=== PATIENT | female | born 1955 | race African-American/Black ===

== ENCOUNTER 2018-03-21 11:48 | Inpatient (IN) | payer MEDICAID, OTHER ==
[~2018-03-21] VITALS: Ht 162.6 cm; Wt 58.1 kg
[~2018-03-21 11:48] MED LIST: UNK HTN
[2018-03-21] MEDS ORDERED: METHYLPREDNISOLONE SOD SUCC 125 MG/2 ML VIAL IV STA (12:07)
[2018-03-21] MEDS ORDERED: IPRATROPIUM BROMIDE (0.02%) 0.5MG/2.5ML NEB HHN STA (12:07)
[2018-03-21] MEDS ORDERED: ALBUTEROL (0.083%) 2.5MG/3ML NEB HHN STA (12:07)
[2018-03-21 13:32] LABS: BASOPHILS % 0.9 % (0.0-2.0); EOSINOPHILS % 4.9 % (0.0-5.0); HEMATOCRIT. 37.9 % (36.0-48.0); HEMOGLOBIN. 12.5 g/dL (12.0-16.0); LYMPHOCYTES % 35.1 % (20.0-50.0); MEAN CORPUSCULAR HEMOGLOBIN 32.2 pg (28.0-32.0); MEAN CORPUSCULAR VOLUME 97.4 fL (81.0-99.0); MEAN PLATELET VOLUME 8.1 fl (7.4-10.4); NEUTROPHILS % 47.1 % (40.0-76.0); PLATELET 225 x1000/uL (130-400); RED BLOOD CELL COUNT 3.89 mill/uL (4.2-5.4); RED CELL DISTRIBUTION WIDTH 13.1 % (11.6-14.6)
[2018-03-21 13:38] LABS: CHLORIDE 106 mEq/L (98-107)
[2018-03-21] MEDS ORDERED: ASPIRIN 325MG TABLET PO NR (14:00)
[2018-03-21] MEDS ORDERED: ACETAMINOPHEN 650MG SUPP PR PRN (14:30)
[2018-03-21] MEDS ORDERED: ACETAMINOPHEN 325MG TABLET PO PRN (14:30)
[2018-03-21] MEDS ORDERED: HYDROCODONE/ACETAMINOPHEN 5/325MG TABLET PO PRN (14:30)
[2018-03-21] MEDS ORDERED: ACETAMINOPHEN 650MG/20.3ML UDC GT PRN (14:30)
[2018-03-21] MEDS ORDERED: ONDANSETRON HCL 4MG/2ML INJ IV PRN (14:30)
[2018-03-21] MEDS ORDERED: MAGNESIUM/ALUMINUM HYDROXIDE/SIMETHICONE 30ML UDC PO PRN (14:30)
[2018-03-21] MEDS ORDERED: FUROSEMIDE 40MG/4ML VIAL IVP NR (14:30)
[2018-03-21] MEDS ORDERED: NITROGLYCERIN 0.4MG TABLET SL SL PRN (16:00)
[2018-03-21 16:36] LABS: CLARITY URINE TURBID (CLEAR); COLOR URINE YELLOW (YELLOW); KETONES URINE NEGATIVE (NEGATIVE); LEUKOCYTE ESTERASE URINE 3+ (NEGATIVE); NITRITE URINE NEGATIVE (NEGATIVE); OCCULT BLOOD URINE 1+ (NEGATIVE); PH URINE 6.5 (4.5-8.0); PROTEIN URINE 1+ (NEGATIVE); SPECIFIC GRAVITY URINE 1.021 (1.005-1.030)
[2018-03-21 16:50] LABS: *AMPHETAMINES SCREEN URINE NEGATIVE (NEGATIVE); *BARBITURATES SCREEN URINE NEGATIVE (NEGATIVE); *BENZODIAZEPINES SCREEN URINE NEGATIVE (NEGATIVE); *COCAINE SCREEN URINE PRESUMTIVE POSITIVE (NEGATIVE); METHADONE URINE SCREEN NEGATIVE (NEGATIVE)
[2018-03-21 16:51] LABS: CANNABINOID URINE SCREEN NEGATIVE (NEGATIVE); OPIATES URINE SCREEN NEGATIVE (NEGATIVE); PHENCYCLIDINE URINE SCREEN NEGATIVE (NEGATIVE)
[2018-03-21] MEDS ORDERED: ONDANSETRON 4MG ODT PO PRN (17:30)
[2018-03-21] MEDS ORDERED: ALBU18HF2 IH (17:57)
[2018-03-21] MEDS ORDERED: BECL10.6 IH (17:57)
[2018-03-21] MEDS ORDERED: IPRATROPIUM/ALBUTEROL 0.5-3(2.5)MG/3ML NEB HHN PRN (18:00)
[2018-03-21 18:02] VITALS: BP 142/74
[2018-03-21] MEDS: METHYLPREDNISOLONE SOD SUCC 40 MG/ML VIAL IV SCH (18:19)
[2018-03-21] MEDS: ENOXAPARIN 60MG/0.6ML SYR SUBCUT SCH (18:20)
[2018-03-21] MEDS: LISINOPRIL 2.5MG TABLET PO SCH (18:20)
[2018-03-21 18:34] VITALS: BP 136/64
[2018-03-21] MEDS ORDERED: IPRATROPIUM/ALBUTEROL 0.5-3(2.5)MG/3ML NEB INH SCH (20:00)
[2018-03-21] MEDS: AMLODIPINE 5MG TABLET PO SCH (20:27)
[2018-03-21] MEDS: ATORVASTATIN CALCIUM 40MG TABLET PO SCH (20:27)
[2018-03-21] MEDS: IPRATROPIUM/ALBUTEROL 0.5-3(2.5)MG/3ML NEB HHN SCH (20:29)
[2018-03-21] MEDS: BUDESONIDE 0.5MG/2ML NEB HHN SCH (20:29)
[2018-03-21 22:00] VITALS: BP 123/71
[2018-03-22] VITALS (7 sets, daily range): BP systolic 91–131; BP diastolic 48–72
[2018-03-22 01:29] LABS: CREATINE KINASE MB FRACTION 2.3 ng/mL (0.5-3.6)
[2018-03-22] MEDS: IPRATROPIUM/ALBUTEROL 0.5-3(2.5)MG/3ML NEB HHN SCH ×3 (02:03→21:45)
[2018-03-22] MEDS: HYDROCODONE/ACETAMINOPHEN 10/325MG TABLET PO PRN ×2 (04:32→13:12)
[2018-03-22] MEDS: ENOXAPARIN 60MG/0.6ML SYR SUBCUT SCH (06:00)
[2018-03-22] MEDS: AMLODIPINE 5MG TABLET PO SCH ×2 (09:00→21:13)
[2018-03-22] MEDS: LISINOPRIL 2.5MG TABLET PO SCH (09:00)
[2018-03-22] MEDS: METHYLPREDNISOLONE SOD SUCC 40 MG/ML VIAL IV SCH (09:44)
[2018-03-22] MEDS: BUDESONIDE 0.5MG/2ML NEB HHN SCH ×2 (12:27→21:45)
[2018-03-22 16:16] LABS: BASOPHILS % 0.1 % (0.0-2.0); HEMATOCRIT. 36.9 % (36.0-48.0); HEMOGLOBIN. 12.4 g/dL (12.0-16.0); LYMPHOCYTES % 10.1 % (20.0-50.0); MEAN CORPUSCULAR HEMOGLOBIN 32.1 pg (28.0-32.0); MEAN CORPUSCULAR VOLUME 95.5 fL (81.0-99.0); MEAN PLATELET VOLUME 8.7 fl (7.4-10.4); MONOCYTES % 2.8 % (2.0-8.0); PLATELET 257 x1000/uL (130-400); RED BLOOD CELL COUNT 3.86 mill/uL (4.2-5.4); RED CELL DISTRIBUTION WIDTH 12.9 % (11.6-14.6)
[2018-03-22 16:30] LABS: T4 FREE 1.06 ng/dL (0.76-1.46)
[2018-03-22 16:30] LABS: AMMONIA 28 uMol/L (<32)
[2018-03-22 16:33] LABS: CREATINE KINASE MB FRACTION 1.3 ng/mL (0.5-3.6)
[2018-03-22 16:40] LABS: PROTHROMBIN TIME 10.3 sec (9.1-11.1)
[2018-03-22] MEDS: ENOXAPARIN 40MG/0.4ML SYR SUBCUT SCH (18:35)
[2018-03-22] MEDS: ATORVASTATIN CALCIUM 40MG TABLET PO SCH (21:13)
[2018-03-23] MEDS: IPRATROPIUM/ALBUTEROL 0.5-3(2.5)MG/3ML NEB HHN SCH ×3 (02:55→21:01)
[2018-03-23 06:28] LABS: BASOPHILS % 0.4 % (0.0-2.0); EOSINOPHILS % 0.2 % (0.0-5.0); HEMATOCRIT. 35.7 % (36.0-48.0); HEMOGLOBIN. 12.2 g/dL (12.0-16.0); LYMPHOCYTES % 38.2 % (20.0-50.0); MEAN CORPUSCULAR HEMOGLOBIN 32.8 pg (28.0-32.0); MEAN CORPUSCULAR VOLUME 96.1 fL (81.0-99.0); MEAN PLATELET VOLUME 8.6 fl (7.4-10.4); MONOCYTES % 7.3 % (2.0-8.0); NEUTROPHILS % 53.9 % (40.0-76.0); PLATELET 268 x1000/uL (130-400); RED BLOOD CELL COUNT 3.71 mill/uL (4.2-5.4); RED CELL DISTRIBUTION WIDTH 12.9 % (11.6-14.6)
[2018-03-23 08:01] VITALS: BP 125/76
[2018-03-23] MEDS: BUDESONIDE 0.5MG/2ML NEB HHN SCH ×2 (08:30→21:01)
[2018-03-23] MEDS: AMLODIPINE 5MG TABLET PO SCH ×2 (08:42→19:54)
[2018-03-23] MEDS: LISINOPRIL 2.5MG TABLET PO SCH (08:42)
[2018-03-23 11:57] VITALS: BP 94/49
[2018-03-23 16:00] VITALS: BP 110/52
[2018-03-23] MEDS: ENOXAPARIN 40MG/0.4ML SYR SUBCUT SCH (18:17)
[2018-03-23] MEDS: ATORVASTATIN CALCIUM 40MG TABLET PO SCH (20:02)
[2018-03-23] MEDS: HYDROCODONE/ACETAMINOPHEN 10/325MG TABLET PO PRN (20:02)
[2018-03-24] VITALS: BP 94/54
[2018-03-24] MEDS: IPRATROPIUM/ALBUTEROL 0.5-3(2.5)MG/3ML NEB HHN SCH ×4 (02:00→14:32)
[2018-03-24 08:00] VITALS: BP 107/60
[2018-03-24] MEDS: BUDESONIDE 0.5MG/2ML NEB HHN SCH (08:20)
[2018-03-24] MEDS: LISINOPRIL 2.5MG TABLET PO SCH (09:00)
[2018-03-24] MEDS: AMLODIPINE 5MG TABLET PO SCH (09:00)
[2018-03-24 10:00] VITALS: BP 94/56
[2018-03-24 11:43] LABS: BASOPHILS % 0.7 % (0.0-2.0); EOSINOPHILS % 3.1 % (0.0-5.0); HEMATOCRIT. 35.7 % (36.0-48.0); HEMOGLOBIN. 11.9 g/dL (12.0-16.0); LYMPHOCYTES % 43.3 % (20.0-50.0); MEAN CORPUSCULAR HEMOGLOBIN 32.3 pg (28.0-32.0); MEAN CORPUSCULAR VOLUME 96.9 fL (81.0-99.0); MEAN PLATELET VOLUME 8.9 fl (7.4-10.4); MONOCYTES % 9.4 % (2.0-8.0); NEUTROPHILS % 43.5 % (40.0-76.0); PLATELET 270 x1000/uL (130-400); RED BLOOD CELL COUNT 3.68 mill/uL (4.2-5.4); RED CELL DISTRIBUTION WIDTH 13.3 % (11.6-14.6)
[2018-03-24 12:00] VITALS: BP 98/56
[2018-03-24 12:28] LABS: CHLORIDE 105 mEq/L (98-107)
[2018-03-24 12:36] LABS: PHOSPHORUS 2.9 mg/dL (2.5-4.9)
[2018-03-24 14:43] VITALS: BP 115/64
[2018-03-24 16:00] VITALS: BP 115/66
[2018-03-24] MEDS: ENOXAPARIN 40MG/0.4ML SYR SUBCUT SCH (18:00)
== END 2018-03-24 19:04 | disposition home or self-care (01) | DRG 816 ==
LOC: ER 11:48 → 5EST 13:53 → EDBEDREQSVC 13:56 → EDBEDREQ 13:56 → ENRESERV 14:02
PROVIDERS: ADMIT Internal Medicine; ATTEND Internal Medicine
DX: T40.5X1A Poisoning by cocaine, accidental (unintentional), initial encounter (principal); I21.4 Non-ST elevation (NSTEMI) myocardial infarction; J96.00 Acute respiratory failure, unspecified whether with hypoxia or hypercapnia; J44.1 Chronic obstructive pulmonary disease with (acute) exacerbation; I11.0 Hypertensive heart disease with heart failure; E11.40 Type 2 diabetes mellitus with diabetic neuropathy, unspecified; I42.9 Cardiomyopathy, unspecified; J45.901 Unspecified asthma with (acute) exacerbation; I50.9 Heart failure, unspecified; N39.0 Urinary tract infection, site not specified; I44.7 Left bundle-branch block, unspecified; F17.210 Nicotine dependence, cigarettes, uncomplicated; I25.10 Atherosclerotic heart disease of native coronary artery without angina pectoris; Z79.84 Long term (current) use of oral hypoglycemic drugs; Z82.49 Family history of ischemic heart disease and other diseases of the circulatory system; Z82.5 Family history of asthma and other chronic lower respiratory diseases; Z91.14 Patient's other noncompliance with medication regimen; Z91.19 Patient's noncompliance with other medical treatment and regimen; Y92.89 Other specified places as the place of occurrence of the external cause; Z88.0 Allergy status to penicillin; Z88.6 Allergy status to analgesic agent; Z71.6 Tobacco abuse counseling
CPT/HCPCS: 36415; 71045; 80048; 80053; 80061; 80076; 80305; 81003; 82140; 82550; 82553; 83036; 83690; 83735; 83880; 84100; 84439; 84443; 84481; 84484; 85025; 85610; 87086; 93005; 93306; 93970; 96374; 96375; 97162; 99291; J1650; J1940; J2920; J2930; J7050; J7620; J7626

== ENCOUNTER 2018-04-23 17:19 | Emergency (ER) | payer MEDICAID | END 2018-04-23 17:49 | disposition left against medical advice (07) | LOC: ER 17:37 | DX: Z53.21 Procedure and treatment not carried out due to patient leaving prior to being seen by health care provider (principal) | CPT/HCPCS: Z7610 ×2 ==

== ENCOUNTER 2018-04-23 17:58 | Inpatient (IN) | payer MEDICAID ==
[~2018-04-23] VITALS: Ht 162.6 cm; Wt 59.0 kg
[2018-04-23] MEDS ORDERED: IPRATROPIUM BROMIDE (0.02%) 0.5MG/2.5ML NEB HHN STA (19:18)
[2018-04-23] MEDS ORDERED: METHYLPREDNISOLONE SOD SUCC 125 MG/2 ML VIAL IV STA (19:18)
[2018-04-23] MEDS ORDERED: MAGNESIUM 2 G PREMIX 50 ML IV ONE (19:30)
[2018-04-23] MEDS: ALBUTEROL (0.083%) 2.5MG/3ML NEB HHN SCH ×3 (19:48→21:07)
[2018-04-23] MEDS ORDERED: MORPHINE SULFATE 4 MG/ML CPJ (NOT FOR IM USE) IV ONE ×2 (20:15→21:00)
[2018-04-23 20:32] LABS: BASOPHILS % 0.6 % (0.0-2.0); EOSINOPHILS % 2.9 % (0.0-5.0); HEMATOCRIT. 34.5 % (36.0-48.0); HEMOGLOBIN. 11.5 g/dL (12.0-16.0); LYMPHOCYTES % 44.2 % (20.0-50.0); MEAN CORPUSCULAR VOLUME 95.7 fL (81.0-99.0); MEAN PLATELET VOLUME 8.4 fl (7.4-10.4); MONOCYTES % 10.4 % (2.0-8.0); NEUTROPHILS % 41.9 % (40.0-76.0); PLATELET 269 x1000/uL (130-400); RED BLOOD CELL COUNT 3.61 mill/uL (4.2-5.4); RED CELL DISTRIBUTION WIDTH 13.1 % (11.6-14.6)
[2018-04-23 20:38] LABS: CHLORIDE 105 mEq/L (98-107)
[2018-04-23] MEDS ORDERED: ENOXAPARIN 60MG/0.6ML SYR SUBCUT ONE (21:00)
[2018-04-23] MEDS ORDERED: MAGNESIUM/ALUMINUM HYDROXIDE/SIMETHICONE 30ML UDC PO PRN (21:45)
[2018-04-23] MEDS ORDERED: CLONIDINE 0.1MG TABLET PO PRN (21:45)
[2018-04-23] MEDS ORDERED: DOCUSATE SODIUM 100MG CAPSULE PO PRN (21:45)
[2018-04-23] MEDS ORDERED: ONDANSETRON HCL 4MG/2ML INJ IV PRN (21:45)
[2018-04-23] MEDS ORDERED: IPRATROPIUM/ALBUTEROL 0.5-3(2.5)MG/3ML NEB INH PRN (21:45)
[2018-04-24] VITALS (13 sets, daily range): BP systolic 98–127; BP diastolic 47–75
[2018-04-24] MEDS ORDERED: POTASSIUM CHLORIDE 20MEQ TABLET SR PO NR (01:15)
[2018-04-24 03:56] LABS: *AMPHETAMINES SCREEN URINE NEGATIVE (NEGATIVE); *BARBITURATES SCREEN URINE NEGATIVE (NEGATIVE); CANNABINOID URINE SCREEN NEGATIVE (NEGATIVE)
[2018-04-24 03:57] LABS: *BENZODIAZEPINES SCREEN URINE NEGATIVE (NEGATIVE); *COCAINE SCREEN URINE PRESUMTIVE POSITIVE (NEGATIVE); METHADONE URINE SCREEN NEGATIVE (NEGATIVE); OPIATES URINE SCREEN PRESUMTIVE POSITIVE (NEGATIVE); PHENCYCLIDINE URINE SCREEN NEGATIVE (NEGATIVE)
[2018-04-24 06:19] LABS: BASOPHILS % 0.1 % (0.0-2.0); HEMATOCRIT. 32.9 % (36.0-48.0); HEMOGLOBIN. 11.2 g/dL (12.0-16.0); LYMPHOCYTES % 18.5 % (20.0-50.0); MEAN CORPUSCULAR HEMOGLOBIN 32.6 pg (28.0-32.0); MEAN CORPUSCULAR VOLUME 95.9 fL (81.0-99.0); MEAN PLATELET VOLUME 8.2 fl (7.4-10.4); MONOCYTES % 1.7 % (2.0-8.0); NEUTROPHILS % 79.7 % (40.0-76.0); PLATELET 270 x1000/uL (130-400); RED BLOOD CELL COUNT 3.43 mill/uL (4.2-5.4); RED CELL DISTRIBUTION WIDTH 13.4 % (11.6-14.6)
[2018-04-24 06:29] LABS: PROTHROMBIN TIME 10.3 sec (9.1-11.1)
[2018-04-24 08:05] LABS: CREATINE KINASE 118 IU/L (26-192); CREATINE KINASE MB FRACTION < 1.0 ng/mL (0.5-3.6); HDL CHOLESTEROL 57 mg/dL (40-59); LDL CHOLESTEROL 80 mg/dL (5-100)
[2018-04-24] MEDS: AMLODIPINE 2.5MG TABLET PO SCH (08:52)
[2018-04-24] MEDS: ASPIRIN 81MG EC TABLET PO SCH (08:52)
[2018-04-24] MEDS: HYDROCODONE/ACETAMINOPHEN 5/325MG TABLET PO PRN ×2 (08:58→23:22)
[2018-04-24] MEDS ORDERED: ENOXAPARIN 80MG/0.8ML SYR SUBCUT SCH (09:00)
[2018-04-24] MEDS ORDERED: DEXTROSE 50% WATER 50ML SYRINGE IV PRN (10:15)
[2018-04-24] MEDS: FUROSEMIDE 100MG/10ML VIAL IVP SCH ×2 (10:56→16:54)
[2018-04-24] MEDS: POTASSIUM CHLORIDE 20MEQ TABLET SR PO SCH ×2 (10:57→16:54)
[2018-04-24] MEDS: BLOOD SUGAR DIAGNOSTIC STRIP TEST SCH ×3 (11:33→21:00)
[2018-04-24] MEDS: INSULIN LISPRO 100 UNITS/ML SUBCUT SCH ×3 (12:28→21:00)
[2018-04-24] MEDS: NICOTINE 21MG PATCH TD SCH (16:54)
[2018-04-24] MEDS: BUDESONIDE 0.5MG/2ML NEB HHN SCH (20:50)
[2018-04-24] MEDS: IPRATROPIUM/ALBUTEROL 0.5-3(2.5)MG/3ML NEB HHN SCH (20:50)
[2018-04-24] MEDS: ENOXAPARIN 60MG/0.6ML SYR SUBCUT SCH (21:25)
[2018-04-25] VITALS (11 sets, daily range): BP systolic 92–125; BP diastolic 50–86
[2018-04-25] MEDS: IPRATROPIUM/ALBUTEROL 0.5-3(2.5)MG/3ML NEB HHN SCH ×7 (00:20→23:50)
[2018-04-25 07:07] LABS: EOSINOPHILS % 1.3 % (0.0-5.0); HEMOGLOBIN. 12.7 g/dL (12.0-16.0); LYMPHOCYTES % 39.8 % (20.0-50.0); MEAN CORPUSCULAR VOLUME 95.4 fL (81.0-99.0); MEAN PLATELET VOLUME 8.7 fl (7.4-10.4); MONOCYTES % 6.9 % (2.0-8.0); PLATELET 304 x1000/uL (130-400); RED BLOOD CELL COUNT 3.98 mill/uL (4.2-5.4); RED CELL DISTRIBUTION WIDTH 13.1 % (11.6-14.6)
[2018-04-25] MEDS: BLOOD SUGAR DIAGNOSTIC STRIP TEST SCH ×4 (07:51→21:00)
[2018-04-25] MEDS: INSULIN LISPRO 100 UNITS/ML SUBCUT SCH ×4 (08:00→21:00)
[2018-04-25] MEDS: AMLODIPINE 2.5MG TABLET PO SCH (09:16)
[2018-04-25] MEDS: ASPIRIN 81MG EC TABLET PO SCH (09:16)
[2018-04-25] MEDS: POTASSIUM CHLORIDE 20MEQ TABLET SR PO SCH ×2 (09:17→17:15)
[2018-04-25] MEDS: ENOXAPARIN 60MG/0.6ML SYR SUBCUT SCH ×3 (09:21→21:12)
[2018-04-25] MEDS: NICOTINE 21MG PATCH TD SCH (09:22)
[2018-04-25] MEDS: FUROSEMIDE 100MG/10ML VIAL IVP SCH (09:23)
[2018-04-25] MEDS: BUDESONIDE 0.5MG/2ML NEB HHN SCH ×2 (09:44→20:00)
[2018-04-25] MEDS: HYDROCODONE/ACETAMINOPHEN 5/325MG TABLET PO PRN (15:10)
[2018-04-25] MEDS ORDERED: POTA20TA82 PO (15:41)
[2018-04-25] MEDS ORDERED: AMLO2.5T45 PO (15:41)
[2018-04-25] MEDS ORDERED: ASPI-1158 PO (15:41)
[2018-04-25] MEDS ORDERED: FURO80TA87 MT (15:41)
[2018-04-25] MEDS: FUROSEMIDE 80MG TABLET PO SCH (17:15)
[2018-04-26] VITALS (11 sets, daily range): BP systolic 98–144; BP diastolic 58–77
[2018-04-26] MEDS: IPRATROPIUM/ALBUTEROL 0.5-3(2.5)MG/3ML NEB HHN SCH ×3 (04:00→12:49)
[2018-04-26 07:01] LABS: BASOPHILS % 0.7 % (0.0-2.0); EOSINOPHILS % 3.6 % (0.0-5.0); HEMATOCRIT. 39.8 % (36.0-48.0); HEMOGLOBIN. 13.6 g/dL (12.0-16.0); LYMPHOCYTES % 40.6 % (20.0-50.0); MEAN CORPUSCULAR HEMOGLOBIN 32.3 pg (28.0-32.0); MEAN CORPUSCULAR VOLUME 94.8 fL (81.0-99.0); MEAN PLATELET VOLUME 8.5 fl (7.4-10.4); MONOCYTES % 8.1 % (2.0-8.0); PLATELET 346 x1000/uL (130-400); RED CELL DISTRIBUTION WIDTH 13.6 % (11.6-14.6)
[2018-04-26] MEDS: BLOOD SUGAR DIAGNOSTIC STRIP TEST SCH ×4 (07:56→20:22)
[2018-04-26] MEDS: INSULIN LISPRO 100 UNITS/ML SUBCUT SCH ×4 (07:56→20:28)
[2018-04-26] MEDS: ASPIRIN 81MG EC TABLET PO SCH (08:41)
[2018-04-26] MEDS: POTASSIUM CHLORIDE 20MEQ TABLET SR PO SCH ×2 (08:43→17:23)
[2018-04-26] MEDS: FUROSEMIDE 80MG TABLET PO SCH ×2 (08:43→17:23)
[2018-04-26] MEDS: NICOTINE 21MG PATCH TD SCH (08:44)
[2018-04-26] MEDS: AMLODIPINE 2.5MG TABLET PO SCH (08:44)
[2018-04-26] MEDS: ENOXAPARIN 60MG/0.6ML SYR SUBCUT SCH ×2 (08:44→20:29)
[2018-04-26] MEDS: ACETAMINOPHEN 325MG TABLET PO PRN ×2 (08:45→14:50)
[2018-04-26] MEDS: BUDESONIDE 0.5MG/2ML NEB HHN SCH ×2 (09:20→19:58)
[2018-04-26] MEDS: IPRATROPIUM BROMIDE (0.02%) 0.5MG/2.5ML NEB HHN SCH (19:58)
[2018-04-27] VITALS (12 sets, daily range): BP systolic 97–126; BP diastolic 54–83
[2018-04-27] MEDS: IPRATROPIUM BROMIDE (0.02%) 0.5MG/2.5ML NEB HHN SCH ×4 (01:35→21:27)
[2018-04-27] MEDS: BLOOD SUGAR DIAGNOSTIC STRIP TEST SCH ×4 (07:30→21:52)
[2018-04-27] MEDS: INSULIN LISPRO 100 UNITS/ML SUBCUT SCH ×4 (08:00→21:00)
[2018-04-27] MEDS: BUDESONIDE 0.5MG/2ML NEB HHN SCH ×2 (08:12→08:42)
[2018-04-27] MEDS: ASPIRIN 81MG EC TABLET PO SCH (09:00)
[2018-04-27] MEDS: NICOTINE 21MG PATCH TD SCH (09:09)
[2018-04-27] MEDS: POTASSIUM CHLORIDE 20MEQ TABLET SR PO SCH ×2 (09:09→16:56)
[2018-04-27] MEDS: FUROSEMIDE 80MG TABLET PO SCH ×2 (09:09→16:56)
[2018-04-27] MEDS: ENOXAPARIN 60MG/0.6ML SYR SUBCUT SCH ×2 (09:10→21:49)
[2018-04-27] MEDS: AMLODIPINE 2.5MG TABLET PO SCH (09:12)
[2018-04-27] MEDS ORDERED: NICO-682 TD (12:44)
[2018-04-27] MEDS ORDERED: ATROV INH (12:44)
[2018-04-27] MEDS ORDERED: SEREDK ORI (12:44)
[2018-04-27] MEDS ORDERED: ALBU18HF2 IH (12:44)
[2018-04-27] MEDS: ACETAMINOPHEN 325MG TABLET PO PRN (16:57)
[2018-04-28] VITALS: BP 99/58
[2018-04-28] MEDS: IPRATROPIUM BROMIDE (0.02%) 0.5MG/2.5ML NEB HHN SCH ×3 (01:15→13:55)
[2018-04-28 04:00] VITALS: BP 98/59
[2018-04-28] MEDS: BLOOD SUGAR DIAGNOSTIC STRIP TEST SCH ×2 (07:20→12:20)
[2018-04-28] MEDS: INSULIN LISPRO 100 UNITS/ML SUBCUT SCH ×2 (07:50→12:50)
[2018-04-28 08:00] VITALS: BP 105/66
[2018-04-28] MEDS: AMLODIPINE 2.5MG TABLET PO SCH (08:29)
[2018-04-28] MEDS: FUROSEMIDE 80MG TABLET PO SCH ×2 (08:31→16:59)
[2018-04-28] MEDS: ASPIRIN 81MG EC TABLET PO SCH ×2 (08:31→08:37)
[2018-04-28] MEDS: ENOXAPARIN 60MG/0.6ML SYR SUBCUT SCH (08:32)
[2018-04-28] MEDS: POTASSIUM CHLORIDE 20MEQ TABLET SR PO SCH ×2 (08:32→16:59)
[2018-04-28] MEDS: NICOTINE 21MG PATCH TD SCH (08:32)
[2018-04-28 12:00] VITALS: BP 112/69
[2018-04-28 13:49] VITALS: BP 105/66
[2018-04-28 16:00] VITALS: BP 111/69
== END 2018-04-28 17:34 | disposition home or self-care (01) | DRG 816 ==
LOC: ER 17:58 → 5EST 21:00 → EDBEDREQSVC 21:02 → EDBEDREQTM 21:02 → EDBEDREQ 21:02 → ENRESERV 23:11 → 6WST 04-27 17:55
PROVIDERS: ADMIT Internal Medicine; ATTEND Internal Medicine
DX: T40.5X1A Poisoning by cocaine, accidental (unintentional), initial encounter (principal); J96.00 Acute respiratory failure, unspecified whether with hypoxia or hypercapnia; I50.23 Acute on chronic systolic (congestive) heart failure; I11.0 Hypertensive heart disease with heart failure; J68.0 Bronchitis and pneumonitis due to chemicals, gases, fumes and vapors; I42.0 Dilated cardiomyopathy; J44.1 Chronic obstructive pulmonary disease with (acute) exacerbation; E11.40 Type 2 diabetes mellitus with diabetic neuropathy, unspecified; F14.10 Cocaine abuse, uncomplicated; F17.210 Nicotine dependence, cigarettes, uncomplicated; I25.10 Atherosclerotic heart disease of native coronary artery without angina pectoris; I34.0 Nonrheumatic mitral (valve) insufficiency; I44.7 Left bundle-branch block, unspecified; Z59.0 Homelessness; Z79.84 Long term (current) use of oral hypoglycemic drugs; Z86.73 Personal history of transient ischemic attack (TIA), and cerebral infarction without residual deficits
CPT/HCPCS: 36415; 71045; 80048; 80061; 80305; 82550; 82553; 82962; 83735; 83880; 84484; 93005; 93970; 94640; 96365; 96375; 97116; 97162; 97530; 99291; J1650; J1940; J2270; J2930; J3475; J7611; J7620; J7626

== ENCOUNTER 2018-05-11 05:32 | Inpatient (IN) | payer MEDICAID ==
[~2018-05-11] VITALS: Ht 160 cm; Wt 57.6 kg
[2018-05-11] VITALS (7 sets, daily range): BP systolic 116–132; BP diastolic 61–79
[~2018-05-11 05:32] MED LIST changes: +ALBU18HF2 IH; +AMLO2.5T45 PO; +ASPI-1158 PO; +ATROV INH; +FURO80TA87 MT; +NICO-682 TD; +POTA20TA82 PO; +SEREDK ORI; -UNK HTN
[2018-05-11] MEDS ORDERED: KETOROLAC 30MG/ML VIAL IV STA (06:43)
[2018-05-11] MEDS ORDERED: LORAZEPAM 2MG/ML CPJ IV ONE (06:45)
[2018-05-11] MEDS ORDERED: KETOROLAC 60MG/2ML VIAL IM ONE (07:45)
[2018-05-11] MEDS ORDERED: LORAZEPAM 2MG/ML CPJ IM ONE (07:45)
[2018-05-11 08:27] LABS: BASOPHILS % 0.9 % (0.0-2.0); EOSINOPHILS % 3.6 % (0.0-5.0); HEMATOCRIT. 30.8 % (36.0-48.0); HEMOGLOBIN. 10.5 g/dL (12.0-16.0); LYMPHOCYTES % 40.6 % (20.0-50.0); MEAN CORPUSCULAR VOLUME 96.6 fL (81.0-99.0); MEAN PLATELET VOLUME 8.4 fl (7.4-10.4); MONOCYTES % 7.7 % (2.0-8.0); NEUTROPHILS % 47.2 % (40.0-76.0); PLATELET 280 x1000/uL (130-400); RED BLOOD CELL COUNT 3.19 mill/uL (4.2-5.4); RED CELL DISTRIBUTION WIDTH 13.4 % (11.6-14.6)
[2018-05-11 08:29] LABS: *AMPHETAMINES SCREEN URINE NEGATIVE (NEGATIVE); *BARBITURATES SCREEN URINE NEGATIVE (NEGATIVE); *BENZODIAZEPINES SCREEN URINE NEGATIVE (NEGATIVE); *COCAINE SCREEN URINE PRESUMTIVE POSITIVE (NEGATIVE); METHADONE URINE SCREEN NEGATIVE (NEGATIVE)
[2018-05-11 08:30] LABS: CANNABINOID URINE SCREEN NEGATIVE (NEGATIVE); OPIATES URINE SCREEN NEGATIVE (NEGATIVE); PHENCYCLIDINE URINE SCREEN NEGATIVE (NEGATIVE)
[2018-05-11 08:39] LABS: D-DIMER 0.43 mg/L FEU (<0.50); INR 1.1; PARTIAL THROMBOPLASTIN TIME 35.5 sec (23.4-31.0); PROTHROMBIN TIME 11.1 sec (9.1-11.1)
[2018-05-11 08:40] LABS: CHLORIDE 110 mEq/L (98-107)
[2018-05-11 08:52] LABS: ETHANOL BLOOD < 10 mg/dL
[2018-05-11] MEDS ORDERED: ENOXAPARIN 60MG/0.6ML SYR SUBCUT ONE (09:00)
[2018-05-11] MEDS ORDERED: ASPIRIN 325MG TABLET PO ONE (09:00)
[2018-05-11] MEDS ORDERED: FUROSEMIDE 40MG/4ML VIAL IVP ONE (09:30)
[2018-05-11] MEDS ORDERED: CLONIDINE 0.1MG TABLET PO PRN (12:45)
[2018-05-11] MEDS ORDERED: ONDANSETRON HCL 4MG/2ML INJ IV PRN (12:45)
[2018-05-11] MEDS: POTASSIUM CHLORIDE 20MEQ TABLET SR PO SCH (13:00)
[2018-05-11 14:15] LABS: PHOSPHORUS 3.2 mg/dL (2.5-4.9)
[2018-05-11] MEDS: FUROSEMIDE 40MG/4ML VIAL IVP SCH (17:39)
[2018-05-11] MEDS ORDERED: DEXTROSE 50% WATER 50ML SYRINGE IV PRN (19:45)
[2018-05-11] MEDS: BLOOD SUGAR DIAGNOSTIC STRIP TEST SCH (21:00)
[2018-05-11] MEDS: INSULIN LISPRO 100 UNITS/ML SUBCUT SCH (21:00)
[2018-05-12] VITALS (13 sets, daily range): BP systolic 93–139; BP diastolic 43–89
[2018-05-12 05:18] LABS: CLARITY URINE CLEAR (CLEAR); COLOR URINE YELLOW (YELLOW); KETONES URINE NEGATIVE (NEGATIVE); LEUKOCYTE ESTERASE URINE 3+ (NEGATIVE); NITRITE URINE NEGATIVE (NEGATIVE); OCCULT BLOOD URINE NEGATIVE (NEGATIVE); PROTEIN URINE NEGATIVE (NEGATIVE); SPECIFIC GRAVITY URINE 1.005 (1.005-1.030); UROBILINOGEN URINE 0.2 E.U./dL (0.2-1.0)
[2018-05-12 06:44] LABS: BASOPHILS % 0.8 % (0.0-2.0); EOSINOPHILS % 5.2 % (0.0-5.0); HEMATOCRIT. 34.8 % (36.0-48.0); HEMOGLOBIN. 11.8 g/dL (12.0-16.0); LYMPHOCYTES % 41.3 % (20.0-50.0); MEAN CORPUSCULAR HEMOGLOBIN 32.6 pg (28.0-32.0); MEAN CORPUSCULAR VOLUME 96.1 fL (81.0-99.0); MEAN PLATELET VOLUME 8.9 fl (7.4-10.4); MONOCYTES % 9.2 % (2.0-8.0); NEUTROPHILS % 43.5 % (40.0-76.0); PLATELET 297 x1000/uL (130-400); RED BLOOD CELL COUNT 3.63 mill/uL (4.2-5.4); RED CELL DISTRIBUTION WIDTH 13.4 % (11.6-14.6)
[2018-05-12] MEDS: BLOOD SUGAR DIAGNOSTIC STRIP TEST SCH ×4 (07:30→21:00)
[2018-05-12] MEDS: INSULIN LISPRO 100 UNITS/ML SUBCUT SCH ×4 (08:00→21:00)
[2018-05-12] MEDS: FUROSEMIDE 40MG/4ML VIAL IVP SCH ×2 (11:06→17:47)
[2018-05-12] MEDS: AMLODIPINE 2.5MG TABLET PO SCH (11:06)
[2018-05-12] MEDS: ENALAPRIL 2.5MG TABLET PO SCH (11:06)
[2018-05-12] MEDS: POTASSIUM CHLORIDE 20MEQ TABLET SR PO SCH (11:07)
[2018-05-12 12:09] LABS: T4 FREE 1.21 ng/dL (0.76-1.46)
[2018-05-12] MEDS: MULTIVITAMINS,THER W-MINERALS TABLET PO SCH (12:23)
[2018-05-12] MEDS: THIAMINE HCL 100MG TABLET PO SCH (12:23)
[2018-05-12] MEDS: FOLIC ACID 1MG TABLET PO SCH (12:23)
[2018-05-12 12:28] LABS: AMMONIA 32 uMol/L (<32)
[2018-05-12 12:50] LABS: FOLIC ACID (FOLATE) SERUM 17.3 ng/mL (>5.38)
[2018-05-12] MEDS: CEFTRIAXONE 1 G PREMIX 50 ML IV SCH (21:03)
[2018-05-12] MEDS: ACETAMINOPHEN 325MG TABLET PO PRN (22:09)
[2018-05-13] VITALS (11 sets, daily range): BP systolic 93–116; BP diastolic 48–88
[2018-05-13 06:21] LABS: BASOPHILS % 1.2 % (0.0-2.0); HEMATOCRIT. 37.2 % (36.0-48.0); LYMPHOCYTES % 48.6 % (20.0-50.0); MEAN CORPUSCULAR HEMOGLOBIN 33.5 pg (28.0-32.0); MEAN PLATELET VOLUME 8.9 fl (7.4-10.4); MONOCYTES % 7.8 % (2.0-8.0); NEUTROPHILS % 35.4 % (40.0-76.0); PLATELET 313 x1000/uL (130-400); RED BLOOD CELL COUNT 3.87 mill/uL (4.2-5.4); RED CELL DISTRIBUTION WIDTH 13.5 % (11.6-14.6)
[2018-05-13] MEDS: INSULIN LISPRO 100 UNITS/ML SUBCUT SCH ×4 (08:00→21:00)
[2018-05-13] MEDS: BLOOD SUGAR DIAGNOSTIC STRIP TEST SCH ×4 (08:02→21:00)
[2018-05-13] MEDS: IPRATROPIUM/ALBUTEROL 0.5-3(2.5)MG/3ML NEB INH PRN ×2 (08:37→21:31)
[2018-05-13] MEDS: BUDESONIDE 0.5MG/2ML NEB HHN SCH ×3 (08:37→21:31)
[2018-05-13] MEDS: FUROSEMIDE 40MG/4ML VIAL IVP SCH ×2 (09:00→17:44)
[2018-05-13] MEDS: AMLODIPINE 2.5MG TABLET PO SCH (09:00)
[2018-05-13] MEDS: ENALAPRIL 2.5MG TABLET PO SCH (09:00)
[2018-05-13] MEDS: ENOXAPARIN 30MG/0.3ML SYR SUBCUT SCH (09:35)
[2018-05-13] MEDS: MULTIVITAMINS,THER W-MINERALS TABLET PO SCH (09:36)
[2018-05-13] MEDS: POTASSIUM CHLORIDE 20MEQ TABLET SR PO SCH (09:36)
[2018-05-13] MEDS: FOLIC ACID 1MG TABLET PO SCH (09:36)
[2018-05-13] MEDS: THIAMINE HCL 100MG TABLET PO SCH (09:36)
[2018-05-13] MEDS: CEFTRIAXONE 1 G PREMIX 50 ML IV SCH (21:27)
[2018-05-13] MEDS: ACETAMINOPHEN 325MG TABLET PO PRN (21:32)
[2018-05-14] VITALS (8 sets, daily range): BP systolic 101–117; BP diastolic 48–68
[2018-05-14] MEDS: BLOOD SUGAR DIAGNOSTIC STRIP TEST SCH ×2 (07:30→12:07)
[2018-05-14] MEDS: INSULIN LISPRO 100 UNITS/ML SUBCUT SCH ×2 (08:00→12:08)
[2018-05-14] MEDS: MULTIVITAMINS,THER W-MINERALS TABLET PO SCH (08:38)
[2018-05-14] MEDS: THIAMINE HCL 100MG TABLET PO SCH (08:38)
[2018-05-14] MEDS: POTASSIUM CHLORIDE 20MEQ TABLET SR PO SCH (08:39)
[2018-05-14] MEDS: FOLIC ACID 1MG TABLET PO SCH (08:39)
[2018-05-14] MEDS: ENALAPRIL 2.5MG TABLET PO SCH (08:39)
[2018-05-14] MEDS: AMLODIPINE 2.5MG TABLET PO SCH (08:39)
[2018-05-14] MEDS: FUROSEMIDE 40MG/4ML VIAL IVP SCH (08:41)
[2018-05-14] MEDS: ENOXAPARIN 30MG/0.3ML SYR SUBCUT SCH (08:41)
[2018-05-14 10:20] LABS: BASOPHILS % 1.3 % (0.0-2.0); EOSINOPHILS % 7.9 % (0.0-5.0); HEMATOCRIT. 39.6 % (36.0-48.0); HEMOGLOBIN. 13.2 g/dL (12.0-16.0); LYMPHOCYTES % 47.4 % (20.0-50.0); MEAN CORPUSCULAR HEMOGLOBIN 32.4 pg (28.0-32.0); MEAN CORPUSCULAR VOLUME 97.3 fL (81.0-99.0); MEAN PLATELET VOLUME 9.2 fl (7.4-10.4); MONOCYTES % 10.1 % (2.0-8.0); NEUTROPHILS % 33.3 % (40.0-76.0); PLATELET 324 x1000/uL (130-400); RED BLOOD CELL COUNT 4.07 mill/uL (4.2-5.4); RED CELL DISTRIBUTION WIDTH 13.9 % (11.6-14.6)
[2018-05-14] MEDS: BUDESONIDE 0.5MG/2ML NEB HHN SCH (11:35)
[2018-05-14] MEDS: ACETAMINOPHEN 325MG TABLET PO PRN (12:31)
== END 2018-05-14 16:51 | disposition home or self-care (01) | DRG 816 ==
LOC: ER 05:32 → 5EST 09:29 → ENRESERV 10:39
PROVIDERS: ADMIT Internal Medicine; ATTEND Internal Medicine
DX: T40.5X1A Poisoning by cocaine, accidental (unintentional), initial encounter (principal); G92 Toxic encephalopathy; I50.23 Acute on chronic systolic (congestive) heart failure; I11.0 Hypertensive heart disease with heart failure; E11.40 Type 2 diabetes mellitus with diabetic neuropathy, unspecified; F17.210 Nicotine dependence, cigarettes, uncomplicated; D64.9 Anemia, unspecified; I24.9 Acute ischemic heart disease, unspecified; J44.9 Chronic obstructive pulmonary disease, unspecified; F14.129 Cocaine abuse with intoxication, unspecified; N39.0 Urinary tract infection, site not specified; I42.0 Dilated cardiomyopathy; I45.2 Bifascicular block; Z86.73 Personal history of transient ischemic attack (TIA), and cerebral infarction without residual deficits; Z59.0 Homelessness; Z88.0 Allergy status to penicillin; Z88.6 Allergy status to analgesic agent; Z71.51 Drug abuse counseling and surveillance of drug abuser; Y92.89 Other specified places as the place of occurrence of the external cause; J68.0 Bronchitis and pneumonitis due to chemicals, gases, fumes and vapors
CPT/HCPCS: 36415; 70551; 71045; 80048; 80305; 82140; 82607; 82746; 82962; 83036; 83735; 83880; 84100; 84439; 84443; 84481; 84484; 85379; 93005; 93970; 96372; 96374; 96375; 97162; 99291; G0482; J0696; J1650; J1885; J1940; J2060; J7050; J7620; J7626

== ENCOUNTER 2018-07-08 17:07 | Inpatient (IN) | payer MEDICAID ==
[~2018-07-08] VITALS: Ht 162.6 cm; Wt 57.6 kg
[2018-07-08] MEDS ORDERED: ALBUTEROL (0.083%) 2.5MG/3ML NEB HHN STA (17:27)
[2018-07-08] MEDS ORDERED: METHYLPREDNISOLONE SOD SUCC 125 MG/2 ML VIAL IV STA (17:27)
[2018-07-08] MEDS ORDERED: ASPIRIN 81MG TABLET PO ONE ×2 (17:30→19:15)
[2018-07-08 18:14] LABS: BASOPHILS % 1.3 % (0.0-2.0); EOSINOPHILS % 2.3 % (0.0-5.0); HEMATOCRIT. 40.3 % (36.0-48.0); HEMOGLOBIN. 13.4 g/dL (12.0-16.0); LYMPHOCYTES % 41.9 % (20.0-50.0); MEAN CORPUSCULAR HEMOGLOBIN 32.5 pg (28.0-32.0); MEAN CORPUSCULAR VOLUME 97.7 fL (81.0-99.0); MEAN PLATELET VOLUME 9.1 fl (7.4-10.4); MONOCYTES % 5.9 % (2.0-8.0); NEUTROPHILS % 48.6 % (40.0-76.0); PLATELET 365 x1000/uL (130-400); RED BLOOD CELL COUNT 4.13 mill/uL (4.2-5.4); RED CELL DISTRIBUTION WIDTH 14.1 % (11.6-14.6)
[2018-07-08 18:20] LABS: CHLORIDE 107 mEq/L (98-107)
[2018-07-08 18:24] LABS: ETHANOL BLOOD < 10 mg/dL
[2018-07-08] MEDS ORDERED: IPRATROPIUM BROMIDE (0.02%) 0.5MG/2.5ML NEB HHN ONE (18:45)
[2018-07-08] MEDS ORDERED: ACETAMINOPHEN 325MG TABLET PO ONE (18:45)
[2018-07-08 21:10] VITALS: BP 125/63
[2018-07-08] MEDS ORDERED: DOCUSATE SODIUM 100MG CAPSULE PO PRN (21:30)
[2018-07-08] MEDS ORDERED: ONDANSETRON HCL 4MG/2ML INJ IV PRN (21:30)
[2018-07-08] MEDS ORDERED: IPRATROPIUM/ALBUTEROL 0.5-3(2.5)MG/3ML NEB INH PRN (21:30)
[2018-07-08] MEDS ORDERED: MAGNESIUM/ALUMINUM HYDROXIDE/SIMETHICONE 30ML UDC PO PRN (21:30)
[2018-07-08] MEDS ORDERED: CLONIDINE 0.1MG TABLET PO PRN (21:30)
[2018-07-08] MEDS ORDERED: ACETAMINOPHEN 325MG TABLET PO PRN (21:30)
[2018-07-08 22:00] VITALS: BP 125/63
[2018-07-08] MEDS: HYDROCODONE/ACETAMINOPHEN 5/325MG TABLET PO PRN (22:06)
[2018-07-08] MEDS: PANTOPRAZOLE 40MG DR TABLET PO SCH (22:32)
[2018-07-08] MEDS ORDERED: AZITHROMYCIN 500 MG TABLET PO SCH (23:00)
[2018-07-09] VITALS (7 sets, daily range): BP systolic 102–132; BP diastolic 48–75
[2018-07-09] MEDS: BUDESONIDE 0.5MG/2ML NEB HHN SCH ×3 (00:22→21:59)
[2018-07-09 01:01] LABS: CHLORIDE 108 mEq/L (98-107)
[2018-07-09 01:02] LABS: CREATINE KINASE 94 IU/L (26-192)
[2018-07-09 01:03] LABS: CREATINE KINASE MB FRACTION < 1.0 ng/mL (0.5-3.6)
[2018-07-09] MEDS: METHYLPREDNISOLONE SOD SUCC 40 MG/ML VIAL IV SCH ×3 (02:07→17:47)
[2018-07-09] MEDS: HYDROCODONE/ACETAMINOPHEN 5/325MG TABLET PO PRN ×3 (03:41→23:21)
[2018-07-09] MEDS: IPRATROPIUM/ALBUTEROL 0.5-3(2.5)MG/3ML NEB INH SCH ×7 (04:00→21:59)
[2018-07-09] MEDS: PANTOPRAZOLE 40MG DR TABLET PO SCH (05:59)
[2018-07-09 07:26] LABS: BASOPHILS % 0.5 % (0.0-2.0); HEMATOCRIT. 36.4 % (36.0-48.0); HEMOGLOBIN. 12.1 g/dL (12.0-16.0); LYMPHOCYTES % 18.3 % (20.0-50.0); MEAN CORPUSCULAR HEMOGLOBIN 32.6 pg (28.0-32.0); MEAN CORPUSCULAR VOLUME 97.9 fL (81.0-99.0); MEAN PLATELET VOLUME 9.5 fl (7.4-10.4); NEUTROPHILS % 80.2 % (40.0-76.0); PLATELET 318 x1000/uL (130-400); RED BLOOD CELL COUNT 3.72 mill/uL (4.2-5.4); RED CELL DISTRIBUTION WIDTH 13.7 % (11.6-14.6)
[2018-07-09 07:57] LABS: CREATINE KINASE 90 IU/L (26-192); CREATINE KINASE MB FRACTION < 1.0 ng/mL (0.5-3.6)
[2018-07-09] MEDS ORDERED: DEXTROSE 50% WATER 50ML SYRINGE IV PRN (08:45)
[2018-07-09] MEDS: ENOXAPARIN 40MG/0.4ML SYR SUBCUT SCH (10:17)
[2018-07-09] MEDS: INSULIN LISPRO 100 UNITS/ML SUBCUT SCH ×3 (12:15→21:00)
[2018-07-09] MEDS: ASPIRIN 81MG TABLET PO SCH (12:20)
[2018-07-09] MEDS: FUROSEMIDE 40MG/4ML VIAL IVP SCH ×2 (12:20→23:21)
[2018-07-09] MEDS: BLOOD SUGAR DIAGNOSTIC STRIP TEST SCH ×3 (12:26→21:00)
[2018-07-09 20:05] LABS: CLARITY URINE CLEAR (CLEAR); COLOR URINE YELLOW (YELLOW); KETONES URINE NEGATIVE (NEGATIVE); LEUKOCYTE ESTERASE URINE TRACE (NEGATIVE); NITRITE URINE NEGATIVE (NEGATIVE); OCCULT BLOOD URINE NEGATIVE (NEGATIVE); PROTEIN URINE NEGATIVE (NEGATIVE); UROBILINOGEN URINE 0.2 E.U./dL (0.2-1.0)
[2018-07-09 20:20] LABS: *AMPHETAMINES SCREEN URINE NEGATIVE (NEGATIVE); *BARBITURATES SCREEN URINE NEGATIVE (NEGATIVE); *BENZODIAZEPINES SCREEN URINE NEGATIVE (NEGATIVE); *COCAINE SCREEN URINE PRESUMTIVE POSITIVE (NEGATIVE); OPIATES URINE SCREEN NEGATIVE (NEGATIVE)
[2018-07-09 20:21] LABS: CANNABINOID URINE SCREEN NEGATIVE (NEGATIVE); METHADONE URINE SCREEN NEGATIVE (NEGATIVE); PHENCYCLIDINE URINE SCREEN NEGATIVE (NEGATIVE)
[2018-07-10] VITALS: BP 106/53
[2018-07-10] MEDS: METHYLPREDNISOLONE SOD SUCC 40 MG/ML VIAL IV SCH ×3 (01:07→17:24)
[2018-07-10] MEDS: IPRATROPIUM/ALBUTEROL 0.5-3(2.5)MG/3ML NEB INH SCH ×6 (01:51→20:31)
[2018-07-10] MEDS: HYDROCODONE/ACETAMINOPHEN 5/325MG TABLET PO PRN ×3 (03:53→21:06)
[2018-07-10 04:00] VITALS: BP 115/55
[2018-07-10] MEDS: BLOOD SUGAR DIAGNOSTIC STRIP TEST SCH ×4 (06:01→20:56)
[2018-07-10] MEDS: INSULIN LISPRO 100 UNITS/ML SUBCUT SCH ×4 (07:15→20:56)
[2018-07-10 07:28] LABS: CHLORIDE 101 mEq/L (98-107)
[2018-07-10 07:41] LABS: PHOSPHORUS 2.9 mg/dL (2.5-4.9)
[2018-07-10 07:43] LABS: LDL CHOLESTEROL 124 mg/dL (5-100)
[2018-07-10 07:44] LABS: HDL CHOLESTEROL 50 mg/dL (40-59)
[2018-07-10 07:45] LABS: HEMATOCRIT. 35.7 % (36.0-48.0); HEMOGLOBIN. 11.9 g/dL (12.0-16.0); MEAN CORPUSCULAR HEMOGLOBIN 32.3 pg (28.0-32.0); MEAN CORPUSCULAR VOLUME 97.3 fL (81.0-99.0); MEAN PLATELET VOLUME 9.6 fl (7.4-10.4); PLATELET 330 x1000/uL (130-400); RED BLOOD CELL COUNT 3.67 mill/uL (4.2-5.4); RED CELL DISTRIBUTION WIDTH 14.1 % (11.6-14.6)
[2018-07-10 08:00] VITALS: BP 100/48
[2018-07-10] MEDS: ASPIRIN 81MG TABLET PO SCH (08:39)
[2018-07-10] MEDS: FAMOTIDINE 20MG TABLET PO SCH (08:42)
[2018-07-10] MEDS: ENOXAPARIN 40MG/0.4ML SYR SUBCUT SCH (08:49)
[2018-07-10] MEDS: AMLODIPINE 2.5MG TABLET PO SCH (08:52)
[2018-07-10] MEDS ORDERED: FUROSEMIDE 40MG/4ML VIAL IVP SCH (09:00)
[2018-07-10 12:00] VITALS: BP 110/48
[2018-07-10] MEDS: NICOTINE 7MG PATCH TD SCH (12:20)
[2018-07-10] MEDS: FUROSEMIDE 40MG/4ML VIAL IVP SCH ×2 (12:20→23:20)
[2018-07-10] MEDS: BUDESONIDE 0.5MG/2ML NEB HHN SCH ×2 (12:24→20:29)
[2018-07-10 15:49] LABS: PLATELET ESTIMATE NORMAL
[2018-07-10 16:00] VITALS: BP 123/67
[2018-07-10 20:00] VITALS: BP 102/57
[2018-07-11] VITALS: BP 119/69
[2018-07-11] MEDS: METHYLPREDNISOLONE SOD SUCC 40 MG/ML VIAL IV SCH ×2 (01:06→09:10)
[2018-07-11] MEDS: HYDROCODONE/ACETAMINOPHEN 5/325MG TABLET PO PRN ×2 (01:07→06:28)
[2018-07-11 04:00] VITALS: BP 109/65
[2018-07-11] MEDS: IPRATROPIUM/ALBUTEROL 0.5-3(2.5)MG/3ML NEB INH SCH ×2 (04:00→11:33)
[2018-07-11] MEDS: INSULIN LISPRO 100 UNITS/ML SUBCUT SCH ×2 (06:28→12:52)
[2018-07-11] MEDS: BLOOD SUGAR DIAGNOSTIC STRIP TEST SCH ×2 (06:28→12:28)
[2018-07-11 08:00] VITALS: BP 120/66
[2018-07-11] MEDS: AMLODIPINE 2.5MG TABLET PO SCH (09:10)
[2018-07-11] MEDS: FAMOTIDINE 20MG TABLET PO SCH (09:10)
[2018-07-11] MEDS: ASPIRIN 81MG TABLET PO SCH (09:10)
[2018-07-11] MEDS: NICOTINE 7MG PATCH TD SCH (09:11)
[2018-07-11] MEDS: ENOXAPARIN 40MG/0.4ML SYR SUBCUT SCH (09:11)
[2018-07-11] MEDS: BUDESONIDE 0.5MG/2ML NEB HHN SCH (11:33)
[2018-07-11 12:00] VITALS: BP 120/70
[2018-07-11] MEDS: FUROSEMIDE 40MG/4ML VIAL IVP SCH (12:52)
[2018-07-11 14:20] VITALS: BP 120/72
[2018-07-11 16:00] VITALS: BP 144/86
== END 2018-07-11 16:45 | disposition home or self-care (01) | DRG 816 ==
LOC: ER 17:07 → 5WST 19:15 → EDBEDREQ 19:25 → EDBEDREQTM 19:25 → ENRESERV 20:06
PROVIDERS: ADMIT Internal Medicine; ATTEND Internal Medicine
DX: T40.5X1A Poisoning by cocaine, accidental (unintentional), initial encounter (principal); I50.23 Acute on chronic systolic (congestive) heart failure; E11.51 Type 2 diabetes mellitus with diabetic peripheral angiopathy without gangrene; E11.42 Type 2 diabetes mellitus with diabetic polyneuropathy; E11.40 Type 2 diabetes mellitus with diabetic neuropathy, unspecified; I42.0 Dilated cardiomyopathy; J68.0 Bronchitis and pneumonitis due to chemicals, gases, fumes and vapors; F19.10 Other psychoactive substance abuse, uncomplicated; E11.65 Type 2 diabetes mellitus with hyperglycemia; F14.188 Cocaine abuse with other cocaine-induced disorder; F17.210 Nicotine dependence, cigarettes, uncomplicated; I11.0 Hypertensive heart disease with heart failure; R07.89 Other chest pain; I44.7 Left bundle-branch block, unspecified; Z59.0 Homelessness; Z79.84 Long term (current) use of oral hypoglycemic drugs; Z79.899 Other long term (current) drug therapy; Z79.82 Long term (current) use of aspirin; Z88.0 Allergy status to penicillin; Z88.6 Allergy status to analgesic agent; Z79.4 Long term (current) use of insulin; Y92.89 Other specified places as the place of occurrence of the external cause
CPT/HCPCS: 36415; 71045; 80048; 80061; 80305; 82550; 82553; 82962; 83036; 83735; 83880; 84100; 84443; 84484; 85379; 93005; 93970; 94640; 96374; 99291; G0482; J1650; J1815; J1940; J2920; J2930; J7611; J7620; J7626